=== PATIENT | male | born 1940 | race Caucasian/White ===

== ENCOUNTER 2018-10-11 14:58 | Inpatient (IN) | payer MEDICARE, OTHER ==
[~2018-10-11] VITALS: Ht 185.4 cm; Wt 112.3 kg
[2018-10-11] MEDS ORDERED: SODIUM CHLORIDE FLUSH 10ML SYR IVF ONE (15:30)
[2018-10-11 15:37] LABS: BASOPHILS # (AUTO) 0.05 x10^3/uL (0-0.1); BASOPHILS % (AUTO) 1 % (0-1); EOSINOPHILS # (AUTO) 0.08 x10^3/uL (0-0.4); EOSINOPHILS % (AUTO) 1 % (1-7); LYMPHOCYTES % (AUTO) 14 % (22-44); MD NO; MEAN CORPUSCULAR HEMOGLOBIN 31.8 pg (27.5-34.5); MEAN CORPUSCULAR VOLUME 93.7 fL (81-97); MEAN PLATELET VOLUME 7.1 fL (7.4-10.4); MONOCYTES % (AUTO) 5 % (2-9); NEUTROPHILS # (AUTO) 5.81 x10^3/uL (1.8-6.8); NEUTROPHILS % (AUTO) 79 % (42-75); PLATELET COUNT 300 x10^3/uL (130-400); RED BLOOD COUNT 5.11 x10^6/uL (4.38-5.82); RED CELL DISTRIBUTION WIDTH 13.9 % (9.4-14.8)
--- NOTE | 2018-10-11 15:41 | NUR ---
TASK RN: Patient resting in [facility] using cell phone, conversing pleasantly. Patient states that he feels "much better, I feel like whatever happened is resolving". Patient appears to be in mild distress at this time. Call lozada within reach, plan of care updated.
[2018-10-11 15:44] LABS: ALBUMIN 3.8 g/dL (3.4-5.0); ANION GAP 7 mmol/L (5-15); CALCIUM 9.8 mg/dL (8.5-10.1); CHLORIDE 112 mmol/L (98-107); CREATININE 0.77 mg/dL (0.7-1.3)
[2018-10-11 15:49] LABS: TROPONIN I < 0.015 ng/mL (0.000-0.045)
--- NOTE | 2018-10-11 16:10 | NUR ---
TASK RN: oxygen titrated to 75% by RT.
--- NOTE | 2018-10-11 16:27 | NUR ---
RECEIVED REPORT FROM SERGEI MATTSON
[2018-10-11] MEDS ORDERED: CEFTRIAXONE PMX 1GM/50ML 50 ML IVPB ONE (16:30)
--- NOTE | 2018-10-11 16:45 | NUR ---
PT MOVED TO ROOM 14 FROM TRAUMA ROOM. BLOOD CULTURES DRAWN X 2 AND ANTIBIOTICS HUNG PER MD ORDER
[2018-10-11] MEDS ORDERED: CEFTRIAXONE PMX 1GM/50ML 50 ML ONE (16:47)
--- NOTE | 2018-10-11 17:15 | NUR ---
PT GIVEN ADA 800 DIET TRAY. Addendum: 10/11/18 at 1748 by MAGGIE 1800 ADA DIET
[2018-10-11] MEDS ORDERED: GLIP5TAB10 PO (17:29)
[2018-10-11] MEDS ORDERED: CLOP75TA52 PO (17:29)
[2018-10-11] MEDS ORDERED: ATOR40TA78 PO (17:30)
[2018-10-11] MEDS ORDERED: PANT40TA5 PO (17:30)
[2018-10-11] MEDS ORDERED: METF500T17 PO (17:30)
[2018-10-11] MEDS ORDERED: GABA300C10 PO (17:33)
[2018-10-11] MEDS ORDERED: LISI1TAB3 PO (17:33)
[2018-10-11] MEDS ORDERED: ALOG25TA2 PO (17:34)
--- NOTE | 2018-10-11 17:49 | NUR ---
REPORT GIVEN TO RN ON FLOOR. PT WILL BE TAKEN TO CT SCAN AND THEN TO FLOOR.
[2018-10-11] MEDS ORDERED: ONDANSETRON 2MG/ML, 2ML IVPush PRN (18:00)
[2018-10-11] MEDS ORDERED: ENOXAPARIN 40 MG/0.4 ML SQ SCH (18:00)
[2018-10-11] MEDS ORDERED: ONDANSETRON ODT 4 MG PO PRN (18:00)
[2018-10-11] MEDS ORDERED: ACETAMINOPHEN 325 MG TABLET PO PRN (18:00)
--- NOTE | 2018-10-11 18:20 | NUR ---
PT BACK FROM CT. LAB INTO DRAW TROPONIN AND PT TAKEN UPSTAIRS.
[2018-10-11 18:45] LABS: TROPONIN I < 0.015 ng/mL (0.000-0.045)
[2018-10-11 19:13] VITALS: BP 142/79
[2018-10-11] MEDS ORDERED: LIDOCAINE-MPF 1%, 5ML ONE (20:25)
[2018-10-11] MEDS ORDERED: FENTANYL PF 100 MCG/2ML ONE ×2 (20:31→21:09)
[2018-10-11] MEDS: GABAPENTIN 300 MG CAPSULE PO SCH (22:20)
[2018-10-11] MEDS: DOXYCYCLINE 100 MG in DEXTROSE 5% 250 ML IV SCH (22:24)
[2018-10-12 00:06] LABS: TROPONIN I < 0.015 ng/mL (0.000-0.045)
[2018-10-12] MEDS ORDERED: POTASSIUM CHLORIDE 20 MEQ TAB.ER.PRT PO ONE (00:30)
[2018-10-12 01:18] VITALS: BP 128/72
[2018-10-12 07:10] LABS: BASOPHILS # (AUTO) 0.05 x10^3/uL (0-0.1); BASOPHILS % (AUTO) 1 % (0-1); EOSINOPHILS # (AUTO) 0.17 x10^3/uL (0-0.4); EOSINOPHILS % (AUTO) 2 % (1-7); LYMPHOCYTES # (AUTO) 1.24 x10^3/uL (1-3.4); LYMPHOCYTES % (AUTO) 17 % (22-44); MD NO; MEAN CORPUSCULAR HEMOGLOBIN 31.5 pg (27.5-34.5); MEAN CORPUSCULAR HGB CONC 33.3 g/dL (33.2-36.2); MEAN CORPUSCULAR VOLUME 94.6 fL (81-97); MEAN PLATELET VOLUME 7.2 fL (7.4-10.4); MONOCYTES # (AUTO) 0.68 x10^3/uL (0.2-0.8); MONOCYTES % (AUTO) 9 % (2-9); NEUTROPHILS # (AUTO) 5.35 x10^3/uL (1.8-6.8); NEUTROPHILS % (AUTO) 71 % (42-75); PLATELET COUNT 274 x10^3/uL (130-400); RED BLOOD COUNT 4.51 x10^6/uL (4.38-5.82); RED CELL DISTRIBUTION WIDTH 14.3 % (9.4-14.8)
[2018-10-12 07:13] VITALS: BP 113/74
[2018-10-12 07:20] LABS: ALANINE AMINOTRANSFERASE 21 U/L (12-78); ALBUMIN 3.4 g/dL (3.4-5.0); ANION GAP 6 mmol/L (5-15); CALCIUM 9.4 mg/dL (8.5-10.1); CHLORIDE 112 mmol/L (98-107); CREATININE 0.79 mg/dL (0.7-1.3)
[2018-10-12 07:22] LABS: ALKALINE PHOSPHATASE 96 U/L (45-117); BILIRUBIN,TOTAL 0.8 mg/dL (0.2-1.0); TOTAL PROTEIN 6.4 g/dL (6.4-8.2)
[2018-10-12] MEDS: PANTOPROZOLE 40MG TABLET PO SCH (08:50)
[2018-10-12] MEDS: CLOPIDOGREL 75 MG TABLET PO SCH (08:50)
[2018-10-12] MEDS: DOXYCYCLINE 100 MG in DEXTROSE 5% 250 ML IV SCH ×2 (11:08→22:48)
[2018-10-12 12:39] VITALS: BP 137/79
[2018-10-12] MEDS ORDERED: CEFTRIAXONE PMX 1GM/50ML 50 ML IV SCH (16:00)
[2018-10-12] MEDS: OXYcodone/APAP 5/325MG TABLET PO PRN ×2 (16:45→22:48)
[2018-10-12 19:25] VITALS: BP 113/68
[2018-10-12] MEDS: ATORVASTATIN 40 MG TABLET PO SCH (20:32)
[2018-10-12] MEDS: GABAPENTIN 300 MG CAPSULE PO SCH (20:32)
[2018-10-13 00:53] VITALS: BP 131/79
[2018-10-13 06:11] LABS: ALBUMIN 3.2 g/dL (3.4-5.0); ANION GAP 7 mmol/L (5-15); CALCIUM 9.2 mg/dL (8.5-10.1); CHLORIDE 111 mmol/L (98-107)
[2018-10-13 06:17] LABS: ALANINE AMINOTRANSFERASE 20 U/L (12-78); ALKALINE PHOSPHATASE 91 U/L (45-117); BILIRUBIN,TOTAL 0.5 mg/dL (0.2-1.0); TOTAL PROTEIN 6.2 g/dL (6.4-8.2)
[2018-10-13 07:21] VITALS: BP 129/82
[2018-10-13] MEDS: AMOXICILLIN/CLAV 875-125MG TABLET PO SCH ×2 (08:49→21:42)
[2018-10-13] MEDS: PANTOPROZOLE 40MG TABLET PO SCH (08:49)
[2018-10-13] MEDS: OXYcodone/APAP 5/325MG TABLET PO PRN ×2 (08:51→21:43)
[2018-10-13] MEDS: DOXYCYCLINE 100MG TABLET PO SCH ×2 (08:51→21:42)
[2018-10-13] MEDS: CLOPIDOGREL 75 MG TABLET PO SCH (08:51)
[2018-10-13] MEDS: INSULIN LISPRO 100 UNITS/ML, PEN SQ-INSULIN SCH ×4 (09:00→21:43)
[2018-10-13 13:19] VITALS: BP 133/79
[2018-10-13 20:28] VITALS: BP 151/71
[2018-10-13] MEDS: GABAPENTIN 300 MG CAPSULE PO SCH (21:43)
[2018-10-13] MEDS: ATORVASTATIN 40 MG TABLET PO SCH (21:48)
[2018-10-14 01:24] VITALS: BP 149/80
[2018-10-14 04:12] LABS: BASOPHILS # (AUTO) 0.04 x10^3/uL (0-0.1); BASOPHILS % (AUTO) 1 % (0-1); EOSINOPHILS # (AUTO) 0.26 x10^3/uL (0-0.4); EOSINOPHILS % (AUTO) 4 % (1-7); LYMPHOCYTES % (AUTO) 19 % (22-44); MD NO; MEAN CORPUSCULAR HEMOGLOBIN 32.3 pg (27.5-34.5); MEAN CORPUSCULAR HGB CONC 34.2 g/dL (33.2-36.2); MEAN CORPUSCULAR VOLUME 94.4 fL (81-97); MEAN PLATELET VOLUME 7.1 fL (7.4-10.4); MONOCYTES # (AUTO) 0.47 x10^3/uL (0.2-0.8); MONOCYTES % (AUTO) 7 % (2-9); NEUTROPHILS % (AUTO) 70 % (42-75); PLATELET COUNT 236 x10^3/uL (130-400); RED BLOOD COUNT 4.34 x10^6/uL (4.38-5.82); RED CELL DISTRIBUTION WIDTH 13.6 % (9.4-14.8)
[2018-10-14 04:13] LABS: ALANINE AMINOTRANSFERASE 17 U/L (12-78); ALBUMIN 3.2 g/dL (3.4-5.0); ANION GAP 5 mmol/L (5-15); CALCIUM 9.3 mg/dL (8.5-10.1); CHLORIDE 112 mmol/L (98-107)
[2018-10-14 04:16] LABS: ALKALINE PHOSPHATASE 90 U/L (45-117); BILIRUBIN,TOTAL 0.5 mg/dL (0.2-1.0); TOTAL PROTEIN 6.1 g/dL (6.4-8.2)
[2018-10-14 08:39] VITALS: BP 142/78
[2018-10-14] MEDS: AMOXICILLIN/CLAV 875-125MG TABLET PO SCH ×2 (09:11→20:42)
[2018-10-14] MEDS: DOXYCYCLINE 100MG TABLET PO SCH ×2 (09:12→20:43)
[2018-10-14] MEDS: CLOPIDOGREL 75 MG TABLET PO SCH (09:12)
[2018-10-14] MEDS: PANTOPROZOLE 40MG TABLET PO SCH (09:13)
[2018-10-14] MEDS: INSULIN LISPRO 100 UNITS/ML, PEN SQ-INSULIN SCH ×4 (09:20→20:44)
[2018-10-14] MEDS: OXYcodone/APAP 5/325MG TABLET PO PRN ×2 (10:26→20:43)
[2018-10-14 13:31] VITALS: BP 136/66
[2018-10-14 19:14] VITALS: BP 132/78
[2018-10-14] MEDS: GABAPENTIN 300 MG CAPSULE PO SCH (20:42)
[2018-10-14] MEDS: ATORVASTATIN 40 MG TABLET PO SCH (20:42)
[2018-10-14] MEDS ORDERED: metFORMIN 500 MG TABLET PO SCH (21:00)
[2018-10-15 00:35] VITALS: BP 135/71
[2018-10-15] MEDS: INSULIN LISPRO 100 UNITS/ML, PEN SQ-INSULIN SCH ×2 (07:00→11:00)
[2018-10-15 08:02] VITALS: BP 169/93
[2018-10-15] MEDS ORDERED: AMOX1TAB12 PO (10:23)
[2018-10-15] MEDS ORDERED: DOXY100T PO (10:23)
[2018-10-15] MEDS ORDERED: TIOT18CA INH (10:27)
[2018-10-15] MEDS ORDERED: ALBU90AE INH (10:27)
[2018-10-15] MEDS: AMOXICILLIN/CLAV 875-125MG TABLET PO SCH (10:39)
[2018-10-15] MEDS: DOXYCYCLINE 100MG TABLET PO SCH (10:39)
[2018-10-15] MEDS: ATORVASTATIN 40 MG TABLET PO SCH (10:39)
[2018-10-15] MEDS: CLOPIDOGREL 75 MG TABLET PO SCH (10:39)
[2018-10-15] MEDS: PANTOPROZOLE 40MG TABLET PO SCH (10:39)
[2018-10-15 14:15] VITALS: BP 140/81
== END 2018-10-15 15:58 | disposition home or self-care (01) | DRG 199 ==
LOC: ED 17:19 → EDIP 17:20 → ED 17:36 → 4WST 18:26
PROVIDERS: ADMIT Internal Medicine; ATTEND Internal Medicine
PROC: 0W9B30Z Drainage of Left Pleural Cavity with Drainage Device, Percutaneous Approach (ICD-10-PCS; principal; 2018-10-11)
DX: J95.811 Postprocedural pneumothorax (principal); J15.9 Unspecified bacterial pneumonia; J96.21 Acute and chronic respiratory failure with hypoxia; J98.11 Atelectasis; I69.351 Hemiplegia and hemiparesis following cerebral infarction affecting right dominant side; E11.9 Type 2 diabetes mellitus without complications; E78.5 Hyperlipidemia, unspecified; Z60.2 Problems related to living alone; I10 Essential (primary) hypertension; R91.1 Solitary pulmonary nodule; J43.9 Emphysema, unspecified; Z80.9 Family history of malignant neoplasm, unspecified; Z83.3 Family history of diabetes mellitus; Z79.84 Long term (current) use of oral hypoglycemic drugs; Z99.81 Dependence on supplemental oxygen; Z87.891 Personal history of nicotine dependence; Z90.5 Acquired absence of kidney
CPT/HCPCS: 32557; 36415; 36600; 71045; 71275; 80048; 80053; 82040; 82803; 82962; 83605; 83880; 84145; 84484; 85025; 87040; 93005; 96365; 99291; G0378; J0696; J3010; J7060; C1729; C1751; C1769; J1815

== ENCOUNTER → 2020-01-30 | Outpatient (CLI) | payer MEDICARE, OTHER ==
[~2020-01-30] MED LIST: ALBU90AE INH; ALOG25TA2 PO; AMOX1TAB12 PO; ATOR40TA78 PO; CLOP75TA52 PO; DOXY100T PO; GABA300C10 PO; GLIP5TAB10 PO; LISI1TAB23 PO; METF500T17 PO; PANT40TA5 PO; TIOT18CA INH
== END | disposition home or self-care (01) ==
LOC: PETCFH 08:21
PROVIDERS: ATTEND Internal Medicine Hematology & Oncology
DX: C64.9 Malignant neoplasm of unspecified kidney, except renal pelvis (principal); R91.8 Other nonspecific abnormal finding of lung field; I25.10 Atherosclerotic heart disease of native coronary artery without angina pectoris
CPT/HCPCS: 78815; A9552